=== PATIENT | male | born 1955 | race African-American/Black ===

== ENCOUNTER 2016-05-02 05:30 | Inpatient (IN) | payer OTHER ==
[~2016-05-02] VITALS: Ht 172.7 cm; Wt 117.7 kg
[2016-05-02] MEDS ORDERED: RINGERS SOLUTION,LACTATED 1,000 ML IV ONE ×4 (05:48→10:30)
[2016-05-02] MEDS ORDERED: CeFAZolin 2 GM/DEXTROSE 50 ML IV ONE ×2 (06:00→07:07)
[2016-05-02 06:36] LABS: BASOPHILS % (AUTO) 0.6 % (0.0-2.0); EOSINOPHILS % (AUTO) 2.6 % (1.0-6.0); HEMATOCRIT 39.6 % (41-53); HEMOGLOBIN 12.9 g/dL (13.5-17.5); LYMPHOCYTES # (AUTO) 1.8 K/uL (1.0-4.8); MEAN CORPUSCULAR HEMOGLOBIN 28.7 pg (26.0-34.0); MEAN CORPUSCULAR HGB CONC 32.6 G/dL (31.0-37.0); MEAN CORPUSCULAR VOLUME 88 fL (80-100); MONOCYTES # (AUTO) 0.5 K/uL (0.1-1.0); NEUTROPHILS # (AUTO) 2.3 K/uL (1.8-7.7); NEUTROPHILS % (AUTO) 47.8 % (40.0-70.0); PLATELET COUNT (AUTO) 219 K/uL (150-450); RED CELL DISTRIBUTION WIDTH 13.8 % (11.5-14.5); WHITE BLOOD COUNT (AUTO) 4.8 K/uL (4.5-11.0)
[2016-05-02] MEDS: RINGERS SOLUTION,LACTATED 1,000 ML IV SCH ×2 (06:41→22:11)
[2016-05-02 06:47] LABS: ANION GAP 8 mmol/L (8-16); CALCIUM, TOTAL 8.5 mg/dL (8.8-10.5); CARBON DIOXIDE 27 mmol/L (22-29); CHLORIDE 104 mmol/L (98-107); CREATININE 1.09 mg/dL (0.60-1.30); GLOMERULAR FILTR. RATE CALC > 60 mL/min (>60); POTASSIUM 3.9 mmol/L (3.5-5.1); SODIUM SERUM 139 mmol/L (136-145); UREA NITROGEN, BLOOD 12 mg/dL (7-18)
[2016-05-02 06:49] LABS: INR 1.1 (0.9-1.1); PROTHROMBIN TIME 11.2 SEC (9.4-11.6)
[2016-05-02] MEDS ORDERED: SODIUM CHLORIDE 0.9% 10 ML ONE (06:56)
[2016-05-02] MEDS ORDERED: ACETAMINOPHEN 1000 MG/ISO-OSM 100 ML IV ONE (07:41)
[2016-05-02] MEDS: GELATIN SPONGE,ABSORBABLE 100 MM TP ONE ×2 (08:20→08:46)
[2016-05-02] MEDS: BACITRACIN 50,000 UNITS/VIAL ONE ×2 (08:20→08:42)
[2016-05-02] MEDS: THROMBIN, BOVINE 20000 UNITS/VIAL POWDER TP ONE ×2 (08:20→08:47)
[2016-05-02] MEDS ORDERED: BUPIVACAINE LIPOSOME/PF 1.3%-13.3MG/ML SUSPENSION 20 ML VIAL INJ ONE (08:45)
[2016-05-02] MEDS: BUPIVACAINE HCL/PF 0.5% 30 ML VIAL ONE ×2 (08:46→10:30)
[2016-05-02] MEDS ORDERED: MEPERIDINE-PF 25 MG/ML SYRINGE IVP PRN (09:00)
[2016-05-02] MEDS ORDERED: HYDROmorphone 2 MG/ML SYRINGE IVP PRN (09:00)
[2016-05-02] MEDS ORDERED: FentaNYL CITRATE-PF 100 MCG/2 ML VIAL IVP PRN (09:00)
[2016-05-02] MEDS ORDERED: HYDROmorphone 2 MG/ML SYRINGE ED ONE (09:00)
[2016-05-02] MEDS: CYCLOBENZAPRINE HCL 10 MG TABLET PO SCH ×3 (09:00→20:51)
[2016-05-02] MEDS: ACETAMINOPHEN 1000 MG/ISO-OSM 100 ML IV SCH ×3 (09:00→20:51)
[2016-05-02] MEDS: BISACODYL 5 MG EC TABLET PO SCH (09:00)
[2016-05-02] MEDS ORDERED: RINGERS SOLUTION,LACTATED 1,000 ML IV SCH (11:15)
[2016-05-02] MEDS ORDERED: ONDANSETRON HCL 4 MG/2 ML VIAL IVP PRN (11:15)
[2016-05-02] MEDS ORDERED: ACETAMINOPHEN 325 MG TABLET PO PRN (11:15)
[2016-05-02] MEDS ORDERED: PROMETHAZINE HCL 25 MG/ML VIAL ONE (11:36)
[2016-05-02 12:43] VITALS: BP 150/84
[2016-05-02] MEDS ORDERED: INFLUENZA VIRUS VACCINE QVS 2016-17 (3YR+)/PF 60 MCG/0.5 ML SYRINGE IM ONE (13:00)
[2016-05-02] MEDS ORDERED: FentaNYL CITRATE-PF 250 MCG/5 ML VIAL IVP ONE (13:23)
[2016-05-02] MEDS ORDERED: KETAMINE HCL 50 MG/ML 10 ML VIAL IVP ONE (13:23)
[2016-05-02] MEDS ORDERED: MIDAZOLAM HCL 2 MG/2 ML VIAL IVP ONE (13:23)
[2016-05-02] MEDS: CeFAZolin 1 GM/DEXTROSE 50 ML IV SCH ×2 (15:04→23:43)
[2016-05-02 15:30] VITALS: BP 141/83
[2016-05-02] MEDS: HYDROmorphone 2 MG/ML SYRINGE IVP PRN (16:26)
[2016-05-02 19:46] VITALS: BP 134/74
[2016-05-02] MEDS: OXYGEN THERAPY IH SCH ×2 (20:50→23:44)
[2016-05-02 23:50] VITALS: BP 108/68
[2016-05-02] MEDS ORDERED: PROPOFOL 1% 20 ML VIAL IVP ONE (23:58)
[2016-05-02] MEDS ORDERED: NEOSTIGMINE METHYLSULFATE 1 MG/ML 10 ML VIAL IVP ONE (23:58)
[2016-05-02] MEDS ORDERED: PHENYLEPHRINE HCL 10 MG/ML VIAL IVP ONE (23:58)
[2016-05-02] MEDS ORDERED: METOCLOPRAMIDE HCL 5 MG/ML 2 ML VIAL IVP ONE (23:58)
[2016-05-02] MEDS ORDERED: ROCURONIUM BROMIDE 10 MG/ML 5 ML VIAL IVP ONE (23:58)
[2016-05-02] MEDS ORDERED: GLYCOPYRROLATE 0.2 MG/ML VIAL IM ONE (23:58)
[2016-05-02] MEDS ORDERED: LIDOCAINE HCL/PF 2% 5 ML VIAL IM ONE (23:58)
[2016-05-03] MEDS: ACETAMINOPHEN 1000 MG/ISO-OSM 100 ML IV SCH (02:40)
[2016-05-03 03:25] VITALS: BP 106/67
[2016-05-03 06:03] LABS: BASOPHILS % (AUTO) 0.2 % (0.0-2.0); EOSINOPHILS % (AUTO) 0 % (1.0-6.0); HEMOGLOBIN 12.1 g/dL (13.5-17.5); LYMPHOCYTES % (AUTO) 17.6 % (22.0-44.0); MEAN CORPUSCULAR HEMOGLOBIN 28.9 pg (26.0-34.0); MEAN CORPUSCULAR HGB CONC 32.7 G/dL (31.0-37.0); MEAN CORPUSCULAR VOLUME 88 fL (80-100); MONOCYTES % (AUTO) 8.5 % (2.0-9.0); NEUTROPHILS # (AUTO) 8.4 K/uL (1.8-7.7); NEUTROPHILS % (AUTO) 73.7 % (40.0-70.0); PLATELET COUNT (AUTO) 209 K/uL (150-450); RED BLOOD CELL COUNT(AUTO) 4.18 MIL/uL (4.50-5.90); WHITE BLOOD COUNT (AUTO) 11.5 K/uL (4.5-11.0)
[2016-05-03 06:47] LABS: IRON, SERUM 42 mcg/dL (50-175); TOTAL IRON BINDING CAPACITY 265 mcg/dL (250-450)
[2016-05-03 06:49] LABS: ANION GAP 8 mmol/L (8-16); CALCIUM, TOTAL 8.5 mg/dL (8.8-10.5); CARBON DIOXIDE 27 mmol/L (22-29); CHLORIDE 104 mmol/L (98-107); CHOL/HDL RATIO 3.7 (4.2-7.3); CREATININE 1.16 mg/dL (0.60-1.30); GLOMERULAR FILTR. RATE CALC > 60 mL/min (>60); POTASSIUM 3.9 mmol/L (3.5-5.1); SODIUM SERUM 139 mmol/L (136-145); UREA NITROGEN, BLOOD 8 mg/dL (7-18)
[2016-05-03 07:28] VITALS: BP 120/61
[2016-05-03] MEDS: BISACODYL 5 MG EC TABLET PO SCH (07:49)
[2016-05-03] MEDS: DOCUSATE SODIUM 100 MG CAPSULE PO SCH ×2 (07:49→21:02)
[2016-05-03] MEDS: CYCLOBENZAPRINE HCL 10 MG TABLET PO SCH ×3 (07:49→21:02)
[2016-05-03] MEDS: OXYGEN THERAPY IH SCH ×3 (08:00→21:03)
[2016-05-03] MEDS: OxyCODONE HCL/ACETAMINOPHEN 5-325 MG TABLET PO PRN ×4 (09:22→18:46)
[2016-05-03 11:35] VITALS: BP 126/67
[2016-05-03 15:42] VITALS: BP 111/63
[2016-05-03] MEDS: HYDROmorphone 2 MG/ML SYRINGE IVP PRN ×4 (16:48→22:55)
[2016-05-03] MEDS ORDERED: DIAZEPAM 5 MG/ML 2 ML SYRINGE IVP ONE (19:10)
[2016-05-03] MEDS ORDERED: DIAZEPAM 5 MG/ML 2 ML SYRINGE IVP PRN (19:15)
[2016-05-03 21:08] VITALS: BP 107/66
[2016-05-04] VITALS (7 sets, daily range): BP systolic 112–142; BP diastolic 72–84
[2016-05-04] MEDS: OxyCODONE HCL/ACETAMINOPHEN 5-325 MG TABLET PO PRN ×3 (02:36→11:57)
[2016-05-04] MEDS: HYDROmorphone 2 MG/ML SYRINGE IVP PRN (03:42)
[2016-05-04] MEDS: BISACODYL 5 MG EC TABLET PO SCH (08:03)
[2016-05-04] MEDS: CYCLOBENZAPRINE HCL 10 MG TABLET PO SCH (08:03)
[2016-05-04] MEDS: OXYGEN THERAPY IH SCH (08:03)
[2016-05-04] MEDS: DOCUSATE SODIUM 100 MG CAPSULE PO SCH ×2 (08:03→20:42)
[2016-05-04] MEDS ORDERED: OxyCODONE HCL/ACETAMINOPHEN 10-325 MG TABLET PO PRN (13:30)
[2016-05-04] MEDS: DEXAMETHASONE SOD PHOS 4 MG/ML VIAL IVP SCH ×2 (13:43→15:40)
[2016-05-04] MEDS: OxyCODONE HCL/ACETAMINOPHEN 10-325 MG TABLET PO PRN ×2 (13:47→18:14)
[2016-05-04] MEDS: CARISOPRODOL 350 MG TABLET PO SCH ×2 (15:40→20:42)
[2016-05-04] MEDS: MAG HYDROX/AL HYDROX/SIMETH 30 ML SUSP UDCUP PO PRN (18:28)
[2016-05-05 05:04] VITALS: BP 105/75
[2016-05-05 07:52] VITALS: BP 126/81
[2016-05-05] MEDS: OXYGEN THERAPY IH SCH (08:00)
[2016-05-05] MEDS: DOCUSATE SODIUM 100 MG CAPSULE PO SCH (08:33)
[2016-05-05] MEDS: BISACODYL 5 MG EC TABLET PO SCH (08:34)
[2016-05-05] MEDS: CARISOPRODOL 350 MG TABLET PO SCH ×2 (09:18→13:00)
[2016-05-05 11:32] VITALS: BP 132/77
[2016-05-05] MEDS ORDERED: PERCT10 PO (11:34)
[2016-05-05] MEDS ORDERED: CARI350 PO (11:34)
[2016-05-05] MEDS: MAG HYDROX/AL HYDROX/SIMETH 30 ML SUSP UDCUP PO PRN (13:00)
== END 2016-05-05 13:24 | disposition home or self-care (01) | DRG 460 ==
LOC: 4E 05:30
PROVIDERS: ADMIT Neurological Surgery; ATTEND Neurological Surgery
PROC: 01NB0ZZ Release Lumbar Nerve, Open Approach (ICD-10-PCS; 2016-05-02)
PROC: 0SB20ZZ Excision of Lumbar Vertebral Disc, Open Approach (ICD-10-PCS; 2016-05-02)
PROC: 0SG0071 Fusion of Lumbar Vertebral Joint with Autologous Tissue Substitute, Posterior Approach, Posterior Column, Open Approach (ICD-10-PCS; 2016-05-02)
PROC: BR191ZZ Fluoroscopy of Lumbar Spine using Low Osmolar Contrast (ICD-10-PCS; 2016-05-02)
PROC: 0SG00A1 (ICD-10-PCS; principal; 2016-05-02 08:20)
DX: M43.16 Spondylolisthesis, lumbar region (principal); M51.16 Intervertebral disc disorders with radiculopathy, lumbar region; D64.9 Anemia, unspecified; G47.33 Obstructive sleep apnea (adult) (pediatric)
CPT/HCPCS: 83540; 83550; 86850; 86900; 86901; 86920; 87081; 93005; 97116; 97161; 97165; 97530; 97535; C1713; C9290; G0238; J0131; J0690; J1030; J1100; J1170; J2250; J2370; J2405; J2550; J2704; J2765; J3010; J3490; J7120